=== PATIENT | female | born 1940 | race Caucasian/White ===

== ENCOUNTER 2016-05-05 08:16 | Day surgery (SDC) | payer MEDICARE, BC ==
[2016-05-05] MEDS ORDERED: Dextrose 5%-Lactated Ringers 1,000 ML IV SCH (09:00)
[2016-05-05] MEDS ORDERED: Propofol 200 MG/20 ML SDV ONE ×2 (09:06→09:45)
[2016-05-05] MEDS ORDERED: Midazolam 1 MG/ML 2 ML SDV ONE (09:06)
[2016-05-05] MEDS ORDERED: fentaNYL 100 MCG/2 ML SDV ONE (09:06)
[2016-05-05] MEDS ORDERED: Ondansetron 4 MG/2 ML SDV ONE (10:09)
[2016-05-05 13:28] VITALS: BP 117/70
--- NOTE | 2016-05-07 11:46 | OR ---
DATE OF PROCEDURE: 05/05/2016 PREOPERATIVE DIAGNOSES: 1. History of Sanchez esophagus. 2. Indications for screening colonoscopy. POSTOPERATIVE DIAGNOSES: 1. History of Sanchez esophagus with minimal inflammation, but persistent findings consistent with Sanchez esophagus. 2. Normal colonoscopic examination. OPERATIVE PROCEDURE: 1. Upper GI endoscopy with biopsies of esophagogastric junction for surveillance of Sanchez esophagus. 2. Flexible colonoscopy. ANESTHESIA: IV sedation. INDICATION FOR PROCEDURE: This is a 75-year-old presenting here with history of Sanchez esophagus. She is to undergo an upper endoscopy with followup biopsies. The patient is also due for screening colonoscopy. The plan is to proceed with upper and lower endoscopy with biopsies and/or polypectomy as indicated. Potential risks including bleeding and perforation were discussed, and the patient wishes to proceed. DETAILS OF PROCEDURE: The patient was taken to the operating room and placed in a left lateral decubitus position. IV sedation was administered, after which the upper GI endoscope was passed orally through the length of the esophagus into the stomach with retroflexion view of the fundus and thereafter through the pyloric channel and into the duodenum to the junction of the third and fourth portions. Findings included normal hypopharynx, larynx, upper esophageal sphincter, esophageal body. At the EG junction, there was a small hiatal hernia present. There was a fairly uniform upward extension of the gastroesophageal junction mucosal line at the level about a centimeter above the upper gastric folds. This was associated with relatively minimal gross inflammation and no stricturing, plaque formation, or other signs of neoplasia. Within the stomach, the proximal stomach was normal apart from the hiatal hernia. There was no redness or other abnormalities within the distal stomach or the pyloric sphincter or duodenum to the junction of the 3rd and 4th duodenal portions. At this point, biopsies were obtained uniformly around the area of the probable Sanchez esophagus and sent for histologic evaluation. Minimal bleeding from the biopsy sites was seen, and the procedure then concluded. The attention was then taken to the colonoscopy. Initial digital rectal exam was performed and it was unremarkable. Colonoscope was then passed into the rectum with retroflexion revealing two hemorrhoidal columns. The scope was eventually passed to the level of the cecum. The prep was only fair with very little liquid stool present, which might obscure some relatively small findings. Otherwise, the exam was entirely normal. The scope withdrawn. The above findings reconfirmed, and the procedure concluded. Recommendation would be to repeat the upper endoscopy in 2 years, assuming that there are no histologic worrisome findings on today's biopsies. Otherwise if patient's health remains relatively good, a repeat colonoscopy in 10 years would be warranted. Jhon Lamb MD /[id number]
== END 2016-05-05 12:25 | disposition home or self-care (01) ==
LOC: JP.SDS 08:16
PROVIDERS: ATTEND Surgery
DX: Z12.11 Encounter for screening for malignant neoplasm of colon (principal); K31.89 Other diseases of stomach and duodenum; J44.9 Chronic obstructive pulmonary disease, unspecified; E78.5 Hyperlipidemia, unspecified; Z88.8 Allergy status to other drugs, medicaments and biological substances
CPT/HCPCS: 43239; 88305; G0121; J2250; J2405; J2704; J3010; J7042

== ENCOUNTER 2017-01-26 02:18 | Emergency (ER) | payer MEDICARE, BC ==
[2017-01-26] MEDS ORDERED: Atropine/Diphenoxylate 0.025-2.5 MG Tab PO ONE (02:19)
[2017-01-26] MEDS ORDERED: Lactated Ringers 1,000 ML IV ONE (02:20)
--- NOTE | 2017-01-26 02:29 | EDM.PDOC ---
ED HPI GENERAL MEDICAL PROBLEM - General Chief Complaint: Gastrointestinal Problem Stated Complaint: [facility] Time Seen by Provider: 01/26/17 02:20 Source of Information: Reports: Patient, EMS History Limitations: Reports: No Limitations - History of Present Illness INITIAL COMMENTS - FREE TEXT/NARRATIVE: 76 yo female arrives via EMS tonight for vomiting and diarrhea that began at bedtime tonight. No blood in her emesis or stools. Lives with her who has severe COPD. No known exposures. No fevers. Onset: Today Onset Date: 01/26/17 Onset Time: 22:00 Duration: Hour(s): Location: Reports: Abdomen Severity: Moderate Improves with: Reports: None Worsens with: Reports: None Context: Reports: Sick Contact (uncertain) Associated Symptoms: Reports: Loss of Appetite, Nausea/Vomiting. 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) - Related Data Allergies Allergy/AdvReac Type Severity Reaction Status Date / Time naproxen sodium [From Aleve] Allergy Hives Verified 01/26/17 02:26 acetaminophen [From Vicodin] AdvReac Anxiety Verified 01/26/17 02:26 hydrocodone bitartrate AdvReac Anxiety Verified 01/26/17 02:26 [From Vicodin] metoclopramide HCl AdvReac Shortness Verified 01/26/17 02:26 [From Reglan] of Breath Home Meds: Home Meds *Flaxseed Seeds 2 cap PO BID 11/17/12 [History] Aspirin [Ecotrin] 81 mg PO DAILY 11/17/12 [History] Cholecalciferol (Vitamin D3) [Vitamin D3] 1 tab PO BID 11/17/12 [History] Tiotropium [Spiriva Handihaler] 1 cap ORAL.INH DAILY 11/17/12 [History] atorvaSTATin [Lipitor] 10 mg PO BEDTIME 05/05/13 [History] Carvedilol 3.125 mg PO BIDM 06/21/14 [History] Multivitamin [Daily Multiple Vitamin] 1 tab PO DAILY 06/21/14 [History] FLUoxetine [PROzac] 20 mg PO DAILY 06/22/14 [History] Ipratropium/Albuterol Sulfate [Iprat-Albut 0.5-3(2.5) MG/3 ML] 3 ml IH Q4HR PRN 03/12/16 [History] Metoclopramide HCl 10 mg PO QID PRN 03/12/16 [History] Pantoprazole Sodium 40 mg PO DAILY 03/12/16 [History] traZODone 50 mg PO BEDTIME 03/12/16 [History] Albuterol/Ipratropium [DuoNeb 3.0-0.5 MG/3 ML] 3 ml PO Q4H PRN 05/01/16 [History ] Past Medical History HEENT History: Reports: Impaired Vision Other HEENT History: nose Cardiovascular History: Reports: High Cholesterol, Other (See Below) Other Cardiovascular History: Partial occlusion - left carotid Respiratory History: Reports: COPD, Sleep Apnea Gastrointestinal History: Reports: Chronic Constipation, Colon Polyp, GERD, Hemorrhoids Genitourinary History: Reports: None [employer]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: Ectopic , Fibroids, , Spontaneous Musculoskeletal History: Reports: Back Pain, Chronic, Neck Pain, Chronic, Osteoarthritis Psychiatric History: Reports: Anxiety, Depression Endocrine/Metabolic History: Reports: Obesity/BMI 30+ Hematologic History: Reports: Blood Transfusion(s) Oncologic (Cancer) History: Reports: Basal Cell Carcinoma, Squamous Cell Carcinoma Dermatologic History: Reports: None - Infectious Disease History Infectious Disease History: Reports: Chicken Pox, Measles, Mumps - Past Surgical History HEENT Surgical History: Reports: Tonsillectomy, Other (See Below) Female Surgical History: Reports: Breast Biopsy, D&C, Hysterectomy, Oophorectomy Neurological Surgical History: Reports: Lumbar Spine, Spinal Fusion Musculoskeletal Surgical History: Reports: Arthroscopic Procedure Dermatological Surgical History: Reports: Skin Biopsy Social & Family History - Tobacco Use Smoking Status *Q: Former Smoker Years of Tobacco use: 40 Packs/Tins Daily: 1 Used Tobacco, but Quit: Yes Month Tobacco Last Used: 8 years october Second Hand Smoke Exposure: No - Caffeine Use Caffeine Use: Reports: Coffee - Alcohol Use Days Per Week of Alcohol Use: 0 - Recreational Drug Use Recreational Drug Use: No ED ROS GENERAL - Review of Systems Review Of Systems: See Below Constitutional: Reports: No Symptoms HEENT: Reports: No Symptoms Respiratory: Reports: No Symptoms Cardiovascular: Reports: No Symptoms GI/Abdominal: Reports: Diarrhea, Decreased Appetite, Nausea, Vomiting. Denies: Abdominal Pain, Black Stool, Bloody Stool, Constipation, Distension, Hematemesis , Hematochezia, Melena : Reports: No Symptoms Musculoskeletal: Reports: No Symptoms Skin: Reports: No Symptoms Neurological: Reports: No Symptoms ED EXAM, GI/ABD - Physical Exam Exam: See Below Exam Limited By: No Limitations General Appearance: Alert, WD/WN, No Apparent Distress Eyes: Bilateral: Normal Appearance Ears: Normal External Exam, Normal Canal, Hearing Grossly Normal, Normal TMs Nose: Normal Inspection, Normal Mucosa, No Blood Throat/Mouth: Normal Inspection, Normal Lips, Normal Oropharynx, Normal Voice, No Airway Compromise Head: Atraumatic, Normocephalic Neck: Normal Inspection, Supple Respiratory/Chest: No Respiratory Distress, Lungs Clear, Normal Breath Sounds, No Accessory Muscle Use Cardiovascular: Regular Rate, Rhythm, No Edema GI/Abdominal Exam: Normal Bowel Sounds, Soft, Non-Tender, No Distention Back Exam: Normal Inspection. No: CVA Tenderness (R), CVA Tenderness (L) Extremities: Normal Inspection, Normal Range of Motion, Non-Tender, No Pedal Edema Neurological: Alert, Oriented, CN II-XII Intact, Normal Cognition, No Motor/ Sensory Deficits Psychiatric: Normal Affect, Normal Mood Skin Exam: Warm, Dry, Intact, Normal Color, No Rash Lymphatic: No Adenopathy Course - Vital Signs Text/Narrative:: Feeling better after our treatments tonight. Last Recorded V/S: Last Vital Signs Temp 36.4 C 01/26/17 02:20 Pulse 76 01/26/17 02:20 Resp 14 01/26/17 02:20 BP 113/60 01/26/17 02:20 Pulse Ox 94 L 01/26/17 02:20 - Orders/Labs/Meds Orders: Active Orders 24 hr Category Date Time Status UA W/MICROSCOPIC [URIN] Stat Lab 01/26/17 02:20 Uncollected Labs: Laboratory Tests 01/26/17 01/26/17 Range/Units 02:34 02:34 WBC 13.2 H (4.5-11.0) K/uL RBC 4.79 (3.30-5.50) M/uL Hgb 12.8 D (12.0-15.0) g/dL Hct 40.6 (36.0-48.0) % MCV 85 (80-98) fL MCH 27 (27-31) pg MCHC 32 (32-36) % Plt Count 199 (150-400) K/uL Sodium 141 (140-148) mmol/L Potassium 4.1 (3.6-5.2) mmol/L Chloride 105 (100-108) mmol/L Carbon Dioxide 27 (21-32) mmol/L Anion Gap 8.7 (5.0-14.0) mmol/L BUN 16 (7-18) mg/dL Creatinine 1.1 H (0.6-1.0) mg/dL Est Cr Clr Drug Dosing 37.12 mL/min Estimated GFR (MDRD) 49 L (>60) Glucose 128 H (74-106) mg/dL Calcium 8.9 (8.5-10.1) mg/dL Meds: Medications Discontinued Medications Generic Name Dose Route Start Last Admin Trade Name Gillian PRN Reason Stop Dose Admin Diphenoxylate HCl/Atropine 2 tab 01/26/17 02:19 01/26/17 02:39 Lomotil 0.025-2.5 Mg PO 01/26/17 02:20 2 tab ONETIME ONE Administration Lactated Ringer's 1,000 mls @ 1,000 mls/hr 01/26/17 02:20 01/26/17 02:40 Ringers, Lactated IV 01/26/17 03:19 1,000 mls/hr BOLUS ONE Administration Departure - Departure Time of Disposition: 03:45 Disposition: Home, Self-Care 01 Condition: Fair Clinical Impression: Vomiting, Diarrhea - Discharge Information Referrals: PCP,None [Primary Care Provider] - Forms: ED Department Discharge - My Orders Last 24 Hours: My Active Orders 01/26/17 02:20 UA W/MICROSCOPIC [URIN] Stat - Assessment/Plan Last 24 Hours: My Active Orders 01/26/17 02:20 UA W/MICROSCOPIC [URIN] Stat
[2017-01-26 03:54] VITALS: BP 142/61
== END 2017-01-26 04:15 | disposition home or self-care (01) ==
LOC: JP.ED 02:18
DX: R19.7 Diarrhea, unspecified (principal); R11.10 Vomiting, unspecified; E78.00 Pure hypercholesterolemia, unspecified; J44.9 Chronic obstructive pulmonary disease, unspecified; K21.9 Gastro-esophageal reflux disease without esophagitis; F32.9 Major depressive disorder, single episode, unspecified; Z79.82 Long term (current) use of aspirin; Z79.899 Other long term (current) drug therapy; Z87.891 Personal history of nicotine dependence; Z88.5 Allergy status to narcotic agent; Z88.6 Allergy status to analgesic agent; Z88.8 Allergy status to other drugs, medicaments and biological substances
CPT/HCPCS: 36415; 80048; 85027; 96360; 99284; A9270; J7120; 99283